=== PATIENT | female | born 1960 | race Two or more races ===

== ENCOUNTER → 2024-08-05 | Outpatient (CLI) | payer OTHER, SELFPAY ==
--- NOTE | 2024-08-05 16:41 | XR_ITS ---
Examination: Left knee 2 views TECHNIQUE: AP lateral left knee 2 views Date and time: August 05, 2024 1702 hours INDICATIONS: Patient fell July 14, 2024 with injury to the knee, knee pain. FINDINGS: No fracture or dislocation. Mild tricompartment osteoarthritis IMPRESSION: No fracture or dislocation
== END | disposition home or self-care (01) ==
PROVIDERS: PCP Physician Assistant; Referring Provider Physician Assistant; Visit Provider Physician Assistant
DX: S80.912A Unspecified superficial injury of left knee, initial encounter (principal); W19.XXXA Unspecified fall, initial encounter
CPT/HCPCS: 73560

== ENCOUNTER → 2024-08-30 | Outpatient (CLI) | payer OTHER, SELFPAY ==
[2024-08-30 12:22] LABS: Basophils % (Auto) 1 % (0-2.5); Eosinophils # (Auto) 0.1 Thou/mm3 (0.0-0.5); Eosinophils % (Auto) 2 % (0-10); Hematocrit 39.2 % (36.0-46.0); Immature Granulocytes % (Auto) 0 % (0-0); Immature Granulocytes Auto 0.01 Thou/mm3 (0.00-0.00); Lymphocytes # (Auto) 1.3 Thou/mm3 (1.0-4.8); Lymphocytes % (Auto) 33 % (10-50); Mean Corpuscular HGB Conc 35.7 g/dl (31.0-37.0); Mean Corpuscular Hemoglobin 32.9 pg (25.0-35.0); Mean Corpuscular Volume 92 fL (80-100); Monocytes # (Auto) 0.3 Thou/mm3 (0.0-0.8); Monocytes % (Auto) 8 % (0-12); Neutrophils # (Auto) 2.1 Thou/mm3 (1.8-7.7); Neutrophils % (Auto) 55 % (37-80); Nucleated Red Blood Cell % 0 /100 WBC (0); Platelet Count 180 Thou/mm3 (140-440); RDW Standard Deviation 42.2 fL (36.4-46.3); Red Blood Count 4.26 Miln/mm3 (4.00-5.20); White Blood Count 3.8 Thou/mm3 (3.6-11.0)
[2024-08-30 12:34] LABS: Alanine Aminotransferase 12 U/L (10-49); Albumin, Serum 4.2 gm/dL (3.4-4.8); Alkaline Phosphatase 58 U/L (46-116); Anion Gap 10 (7-16); BUN/Creatinine Ratio 23 Ratio (12-20); Bilirubin,Direct 0.2 mg/dL (0.0-0.3); Bilirubin,Total 0.8 mg/dL (0.3-1.2); Blood Urea Nitrogen 16 mg/dL (9-23); Calcium 8.8 mg/dL (8.3-10.6); Carbon Dioxide 27.8 mMol/L (20.0-31.0); Chloride 106 mMol/L (98-107); Creatinine (Component) 0.7 mg/dL (0.6-1.3); Free T3 3.7 pg/mL (2.3-4.2); Free T4 (Free Thyroxine) 1.32 ng/dL (0.89-1.76); Glucose 87 mg/dL (74-106); Osmolality,Calculated 287 (275-295); Phosphorous 3.2 mg/dL (2.4-5.1); Potassium 4.1 mMol/L (3.4-5.1); Sodium 144 mMol/L (136-145); Total Protein 6.4 gm/dL (5.7-8.2); eGFR > 60 See Note
[2024-09-08 06:42] LABS: DHEA Sulfate* 31 mcg/dL (12-133); Estrogen, Total, Serum* 218 pg/mL; Homocysteine* 8.6 umol/L (< OR = 13.4); Progesterone,LC/MS* 0.3 ng/mL; T3, Reverse, LC/MS/MS* 22 ng/dL (8-25); Testosterone, Free,Dialysis 2.3 pg/mL (0.1-6.4); Testosterone, Total, Dialysis 30 ng/dL (2-45); hs-CRP* 1.4 mg/L
== END | disposition home or self-care (01) ==
LOC: COPL 10:56
PROVIDERS: PCP Family Medicine; Referring Provider Family Medicine; Visit Provider Family Medicine
DX: E03.9 Hypothyroidism, unspecified (principal); E08.9 Diabetes mellitus due to underlying condition without complications; E34.9 Endocrine disorder, unspecified
CPT/HCPCS: 36415; 80048; 80069; 80076; 82627; 82672; 83090; 84100; 84144; 84402; 84403; 84439; 84481; 84482; 85025; 86141